=== PATIENT | female | born 2000 | race Caucasian/White ===

== ENCOUNTER 2018-02-27 08:14 | Inpatient (IN) | payer OTHER ==
[2018-02-27] MEDS ORDERED: NS 1,000 ML IV ONE ×3 (08:24→09:21)
[2018-02-27] MEDS ORDERED: ONDANSETRON 4 MG/2 ML VIAL ONE (08:30)
[2018-02-27] MEDS ORDERED: ONDANSETRON 4 MG/2 ML VIAL IVP ONE (08:34)
--- NOTE | 2018-02-27 08:40 | EDPHY ---
H & P Stated Complaint: etoh this weekend vomiting since /is a diabetic Time Seen by Provider: 02/27/18 08:24 HPI/ROS: CHIEF COMPLAINT: Vomiting, diabetic HISTORY OF PRESENT ILLNESS: The patient presents to the ED with intractable vomiting for the past day. The patient reports her symptoms were precipitated by a weekend of heavy drinking. She reportedly has had high blood sugars over the past day the 200 range. She presents to the ED today complaining of profound fatigue, weakness, tachypnea and ongoing vomiting. The patient denies any hematemesis or melena. She denies any antecedent chest pain, cough or congestion. The patient denies any symptoms of dysuria. REVIEW OF SYSTEMS: A comprehensive 10 point review of systems is otherwise negative aside from elements mentioned in the history of present illness. Source: Patient - Personal History LMP (Females 10-55): 15-21 Days Ago - Medical/Surgical History Hx Asthma: No Hx Chronic Respiratory Disease: No Hx Diabetes: Yes Hx Cardiac Disease: No Hx Renal Disease: No Hx Cirrhosis: No Hx Alcoholism: No Hx HIV/AIDS: No Hx Splenectomy or Spleen Trauma: No Other PMH: Type 1 diabetes - Social History Smoking Status: Never smoked - Physical Exam Exam: General Appearance: Thin female, ill-appearing Eyes: Pupils equal and round no pallor or injection ENT, Mouth: Dry mucous membranes Respiratory: Tachypneic Cardiovascular: Tachycardic Gastrointestinal: Diffuse tenderness, no peritoneal signs, normal bowel sounds Neurological: 5/5 strength all 4 extremities Skin: Warm and dry, no rashes Musculoskeletal: Neck is supple nontender Extremities: symmetrical, full range of motion Constitutional: Initial Vital Signs Temperature (C) 36.4 C 02/27/18 08:17 Heart Rate 151 H 02/27/18 08:17 Respiratory Rate 22 H 02/27/18 08:17 Blood Pressure 113/90 H 02/27/18 08:17 O2 Sat (%) 100 02/27/18 08:17 O2 Delivery Mode Room Air Allergies/Adverse Reactions: No Known Allergies Allergy (Unverified 02/27/18 08:17) Home Medications: Medication Instructions Recorded Tresiba Flextouch U-100 02/27/18 novoLOG 02/27/18 Medical Decision Making - Diagnostics EKG Interpretation: EKG: Complete interpretation has been separately recorded in the [facility] archive. Summary impression: Sinus tachycardia, rate 135 ED Course/Re-evaluation: The patient presents to the ED with intractable vomiting in the setting of recent heavy alcohol consumption. She also has a history of diabetes. She presents to the ED acutely ill, tachycardic and dehydrated. The patient is noted to be ketotic clinically. Initial workup includes a venous pH of 6.9 and glucose of greater than 500. The patient had an IV established. She received 2 L of normal saline. She is started on insulin drip per the DKA protocol. Consultation was made with the hospitalist service at 9:00 a.m. and the patient will be admitted to the intensive care unit. The patient is noted to have a fairly significant leukocytosis likely secondary to demargination and stress response. The patient is critically ill and will require admission to the intensive care unit. Differential Diagnosis: Differential diagnosis considered includes diabetic ketoacidosis, dehydration, metabolic abnormality, renal failure Critical Care Time: Critical care time exclusive of procedures and exclusive of the PA's time was 65 minutes, performed by myself, Cheng Jimenez MD. The patient presents to the ED with profound acidosis, dehydration and a endocrine emergency. The patient required resuscitation with IV fluids and the initiation of an insulin drip. She will ultimately require admission to the intensive care unit for stabilization and treatment. - Data Points Laboratory Results: Laboratory Results 02/27/18 08:34 02/27/18 08:34 02/27/18 02/27/18 02/27/18 08:46 08:34 08:34 WBC RBC Hgb POC Hgb 20.1 gm/dL H* gm/dL (12.6-16.3) Hct POC Hct 59 % H % (38-47) MCV MCH MCHC RDW Plt Count MPV Neut % (Auto) Lymph % (Auto) Reagan % (Auto) Eos % (Auto) Baso % (Auto) Nucleat RBC Rel Count Absolute Neuts (auto) Absolute Lymphs (auto) Absolute Monos (auto) Absolute Eos (auto) Absolute Basos (auto) Absolute Nucleated RBC Immature Gran % Immature Gran # Platelet Estimate VBG pH 6.80 L (7.31-7.42) POC Sodium 137 mEq/L mEq/L (135-145) Sodium POC Potassium 4.8 mEq/L mEq/L (3.3-5.0) Potassium POC Chloride 107 mEq/L mEq/L (97-110) Chloride Carbon Dioxide Anion Gap POC BUN 20 mg/dL mg/dL (7-23) BUN Creatinine POC Creatinine 0.9 mg/dL mg/dL (0.6-1.0) Estimated GFR Glucose POC Glucose 595 mg/dL H* mg/dL (70-100) Calcium Total Bilirubin Conjugated Bilirubin Unconjugated Bilirubin AST ALT Alkaline Phosphatase Total Protein Albumin Lipase Beta-Hydroxybutyrate Pending Beta HCG, Qual 02/27/18 02/27/18 02/27/18 08:34 08:34 08:34 WBC 37.50 10^3/uL H 10^3/uL (3.80-9.50) RBC 5.84 10^6/uL H 10^6/uL (4.18-5.33) Hgb 16.6 g/dL H g/dL (12.6-16.3) POC Hgb Hct 55.1 % H % (38.0-47.0) POC Hct MCV 94.3 fL fL (81.5-99.8) MCH 28.4 pg pg (27.9-34.1) MCHC 30.1 g/dL L g/dL (32.4-36.7) RDW 12.9 % % (11.5-15.2) Plt Count 498 10^3/uL H 10^3/uL (150-400) MPV 10.0 fL fL (8.7-11.7) Neut % (Auto) Pending Lymph % (Auto) Pending Reagan % (Auto) Pending Eos % (Auto) Pending Baso % (Auto) Pending Nucleat RBC Rel Count Pending Absolute Neuts (auto) Pending Absolute Lymphs (auto) Pending Absolute Monos (auto) Pending Absolute Eos (auto) Pending Absolute Basos (auto) Pending Absolute Nucleated RBC Pending Immature Gran % Pending Immature Gran # Pending Platelet Estimate Pending VBG pH POC Sodium Sodium 141 mEq/L mEq/L (135-145) POC Potassium Potassium 5.4 mEq/L H mEq/L (3.3-5.0) POC Chloride Chloride 102 mEq/L mEq/L (97-110) Carbon Dioxide Pending Anion Gap Pending POC BUN BUN 15 mg/dL mg/dL (7-23) Creatinine 1.1 mg/dL H mg/dL (0.6-1.0) POC Creatinine Estimated GFR > 60 Glucose Pending POC Glucose Calcium 9.9 mg/dL mg/dL (8.5-10.4) Total Bilirubin 0.4 mg/dL mg/dL (0.1-1.4) Conjugated Bilirubin 0.4 mg/dL mg/dL (0.0-0.5) Unconjugated Bilirubin 0.0 mg/dL mg/dL (0.0-1.1) AST 47 IU/L H IU/L (14-46) ALT 38 IU/L IU/L (9-52) Alkaline Phosphatase 236 IU/L H IU/L (38-126) Total Protein 8.9 g/dL H g/dL (6.3-8.2) Albumin Pending Lipase 198 IU/L IU/L (23-300) Beta-Hydroxybutyrate Beta HCG, Qual NEGATIVE Medications Given: Discontinued Medications Sodium Chloride (Ns) 1,000 mls @ 0 mls/hr IV EDNOW ONE; Wide Open PRN Reason: Protocol Stop: 02/27/18 08:25 Last Admin: 02/27/18 08:35 Dose: 1,000 mls Sodium Chloride (Ns) 1,000 mls @ 0 mls/hr IV EDNOW ONE; Wide Open PRN Reason: Protocol Stop: 02/27/18 08:25 Last Admin: 02/27/18 08:35 Dose: 1,000 mls Ondansetron HCl (Zofran) 4 mg IVP EDNOW ONE Stop: 02/27/18 08:35 Last Admin: 02/27/18 08:35 Dose: 4 mg Point of Care Test Results: Chemistry 02/27/18 08:46 POC Sodium 137 mEq/L mEq/L (135-145) POC Potassium 4.8 mEq/L mEq/L (3.3-5.0) POC Chloride 107 mEq/L mEq/L (97-110) POC BUN 20 mg/dL mg/dL (7-23) POC Creatinine 0.9 mg/dL mg/dL (0.6-1.0) POC Glucose 595 mg/dL H* mg/dL (70-100) ISTAT H&H 02/27/18 08:46 POC Hgb 20.1 gm/dL H* gm/dL (12.6-16.3) POC Hct 59 % H % (38-47) Departure - Departure Disposition: [facility] Clinical Impression: Diabetic ketoacidosis, Tachycardia Condition: Critical
--- NOTE | 2018-02-27 08:42 | CPEKG ---
Test Reason : OPEN Blood Pressure : / mmHG Vent. Rate : 135 BPM Atrial Rate : 135 BPM P-R Int : 129 ms QRS Dur : 078 ms QT Int : 321 ms P-R-T Axes : 092 082 057 degrees QTc Int : 482 ms Sinus tachycardia Confirmed by Cheng Jimenez ([id number]) on 02/27/2018 8:42:10 AM Referred By: Confirmed By:Cheng Jimeenz
[2018-02-27] MEDS ORDERED: INSULIN REGULAR HUMAN 100 UNIT, COSIGN. REQUIRED 1 EA in NS 100 ML IV ONE (08:55)
[2018-02-27 08:56] LABS: PLATELET COUNT 498 10^3/uL (150-400)
[2018-02-27] MEDS ORDERED: SODIUM BICARBONATE 50 MEQ/50 ML SYR IVP ONE (09:22)
[2018-02-27] MEDS ORDERED: ONDANSETRON DISINTEGRATING 4 MG TAB PO PRN (09:24)
[2018-02-27] MEDS ORDERED: ONDANSETRON 4 MG/2 ML VIAL IVP PRN (09:24)
[2018-02-27] MEDS ORDERED: INSULIN REGULAR HUMAN 100 UNIT in NS 100 ML IV SCH ×2 (09:30→11:00)
--- NOTE | 2018-02-27 10:57 | PDGENHP ---
History and Physical - Chief Complaint N/V - History of Present Illness 17 yo female with h/o type 1 DM, diagnosed age 5, presents to ED with N/V and volume depletion, found to be in DKA. She went to a [employer] Monday night and drank a lot of alcohol. 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 She began vomiting last night and has had ongoing N/V through the night. She denies fevers/chills, cough, CP, SOB or abdominal pain. She does endorse dysuria and notes h/o UTI. She says her a1c is usually around 9. She is generally compliant with her basal/bolus insulin regimen and has never been hospitalized with DKA in the past. On arrival to the ED, she was tachycardic to 150 and tachypneic. Venous pH was 6.8 and bg was in the 500's. She received 2 L NS bolus, was started on an insulin drip, and is admitted to the ICU for further management. History Information - Allergies/Home Medication List Allergies/Adverse Reactions: No Known Allergies Allergy (Verified 02/27/18 09:25) Home Medications: Insulin Aspart [novoLOG] 0 unit SC TIDMEAL 02/27/18 [Last Taken Unknown] Insulin Degludec [Tresiba Flextouch U-100] 30 unit SQ HS 02/27/18 [Last Taken ] I have personally reviewed and updated: family history, medical history, social history, surgical history - Past Medical History diabetes type 1 - Surgical History Reports: no pertinent surgical hx - Family History Positive for: non-pertinent - Social History Smoking Status: Never smoked Alcohol Use: Other (binge drinking at times) Drug Use: None 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, from [place], father at bedside Review of Systems Review of Systems: Physical Exam Physical Exam: Temp Pulse Resp BP Pulse Ox 36.5 C 130 H 42 H 138/76 H 100 02/27/18 10:42 02/27/18 10:42 02/27/18 10:42 02/27/18 10:42 02/27/18 10:42 Lab Data & Imaging Review 02/27/18 08:34 02/27/18 08:34 WBC 37.50 10^3/uL (3.80-9.50) H 02/27/18 08:34 RBC 5.84 10^6/uL (4.18-5.33) H 02/27/18 08:34 Hgb 16.6 g/dL (12.6-16.3) H 02/27/18 08:34 POC Hgb 16.0 gm/dL (12.6-16.3) 02/27/18 10:19 Hct 55.1 % (38.0-47.0) H 02/27/18 08:34 POC Hct 47 % (38-47) 02/27/18 10:19 MCV 94.3 fL (81.5-99.8) 02/27/18 08:34 MCH 28.4 pg (27.9-34.1) 02/27/18 08:34 MCHC 30.1 g/dL (32.4-36.7) L 02/27/18 08:34 RDW 12.9 % (11.5-15.2) 02/27/18 08:34 Plt Count 498 10^3/uL (150-400) H 02/27/18 08:34 MPV 10.0 fL (8.7-11.7) 02/27/18 08:34 Neut % (Auto) 79.3 % (39.3-74.2) H 02/27/18 08:34 Lymph % (Auto) 11.7 % (15.0-45.0) L 02/27/18 08:34 [place] % (Auto) 5.9 % (4.5-13.0) 02/27/18 08:34 Eos % (Auto) 0.0 % (0.6-7.6) L 02/27/18 08:34 Baso % (Auto) 0.8 % (0.3-1.7) 02/27/18 08:34 Nucleat RBC Rel Count 0.0 % (0.0-0.2) 02/27/18 08:34 Absolute Neuts (auto) 29.72 10^3/uL (1.70-6.50) H 02/27/18 08:34 Absolute Lymphs (auto) 4.39 10^3/uL (1.00-3.00) H 02/27/18 08:34 Absolute Monos (auto) 2.22 10^3/uL (0.30-0.80) H 02/27/18 08:34 Absolute Eos (auto) 0.01 10^3/uL (0.03-0.40) L 02/27/18 08:34 Absolute Basos (auto) 0.29 10^3/uL (0.02-0.10) H 02/27/18 08:34 Absolute Nucleated RBC 0.00 10^3/uL (0-0.01) 02/27/18 08:34 Immature Gran % 2.3 % (0.0-1.1) H 02/27/18 08:34 Seg Neutrophils % 87.4 % 02/27/18 08:34 Band Neutrophils % 0.0 % 02/27/18 08:34 Lymphocytes % 7.4 % 02/27/18 08:34 Monocytes % 5.2 % 02/27/18 08:34 Eosinophils % 0.0 % 02/27/18 08:34 Basophils % 0.0 % 02/27/18 08:34 Metamyelocytes % 0.0 % 02/27/18 08:34 Myelocytes % 0.0 % 02/27/18 08:34 Promyelocytes % 0.0 % 02/27/18 08:34 Blast Cells % 0.0 % 02/27/18 08:34 Immature Gran # 0.87 10^3/uL (0.00-0.10) H 02/27/18 08:34 Absolute Seg Neuts 32.78 10^3/uL (1.70-6.50) H 02/27/18 08:34 Absolute Band Neuts 0.00 10^3/uL (0.00-0.70) 02/27/18 08:34 Absolute Lymphocytes 2.78 10^3/uL (1.00-3.00) 02/27/18 08:34 Absolute Monocytes 1.95 10^3/uL (0.30-0.80) H 02/27/18 08:34 Absolute Eosinophils 0.00 10^3/uL (0.03-0.40) L 02/27/18 08:34 Absolute Basophils 0.00 10^3/uL (0.02-0.10) L 02/27/18 08:34 Absolute Metamyelocyte 0.00 10^3/mL (0.00-0.00) 02/27/18 08:34 Absolute Myelocytes 0.00 10^3/mL (0.00-0.00) 02/27/18 08:34 Absolute Promyelocytes 0.00 10^3/uL (0.00-0.00) 02/27/18 08:34 Absolute Plasma Cells 0.00 10^3/uL (0.00-0.00) 02/27/18 08:34 Nucleated RBCs 0 /100 WBC (0-0) 02/27/18 08:34 Absolute Blast Cells 0.00 10^3/uL (0.00-0.00) 02/27/18 08:34 Plasma Cells % 0.0 % 02/27/18 08:34 Platelet Estimate ADEQUATE (ADEQ) 02/27/18 08:34 Polychromasia 1+ H 02/27/18 08:34 Puncture Site LEFT RADIAL 02/27/18 10:17 Patient Temperature 36.2 DEGREES 02/27/18 10:17 pCO2 9 mmHg (34-38) L* 02/27/18 10:17 pO2 110 mmHg (65-75) H 02/27/18 10:17 Total CO2 3 mEq/L (23-27) L* 02/27/18 10:17 ABG pH 6.99 (7.35-7.45) L* 02/27/18 10:17 ABG HCO3 2 mEq/L (22-26) L 02/27/18 10:17 ABG O2 Saturation 97 % (92-95) H 02/27/18 10:17 ABG Base Excess -30.6 mEq/L (-2.5-2.5) L 02/27/18 10:17 VBG pH 6.92 (7.31-7.42) L 02/27/18 10:15 VBG HCO3 4 mEQ/L (22-26) L 02/27/18 10:15 VBG Total CO2 4 mEq/L (21-27) L 02/27/18 10:15 VBG O2 Saturation 95 % (65-75) H 02/27/18 10:15 VBG Base Excess -29.8 mEq/L (-2.5-2.5) L 02/27/18 10:15 Mixed VBG pCO2 19 mmHg (40-44) L 02/27/18 10:15 Mixed VBG pO2 103 mmHG (35-40) H 02/27/18 10:15 Total O2 Concentration Cancelled 02/27/18 10:11 O2 Concentration % ROOM AIR % (0-100) 02/27/18 10:17 Respiration Rate Cancelled 02/27/18 10:11 Actual Respiration Rate Cancelled 02/27/18 10:11 Set Respiration Rate Cancelled 02/27/18 10:11 SIMV Cancelled 02/27/18 10:11 Assist Control Cancelled 02/27/18 10:11 Vent Rate Cancelled 02/27/18 10:11 Expiratory Pressure Cancelled 02/27/18 10:11 Tidal Volume Cancelled 02/27/18 10:11 End Tidal CO2 Cancelled 02/27/18 10:11 PEEP Cancelled 02/27/18 10:11 Inspiratory Pressure Cancelled 02/27/18 10:11 Pressure Support Cancelled 02/27/18 10:11 Pressure Control Cancelled 02/27/18 10:11 CPAP Cancelled 02/27/18 10:11 BiPAP Cancelled 02/27/18 10:11 Mode BiPAP Cancelled 02/27/18 10:11 Inspir/Expir Ratio Cancelled 02/27/18 10:11 POC Sodium 140 mEq/L (135-145) 02/27/18 10:19 Sodium 141 mEq/L (135-145) 02/27/18 08:34 POC Potassium 5.0 mEq/L (3.3-5.0) 02/27/18 10:19 Potassium 5.4 mEq/L (3.3-5.0) H 02/27/18 08:34 POC Chloride 114 mEq/L (97-110) H 02/27/18 10:19 Chloride 102 mEq/L (97-110) 02/27/18 08:34 Carbon Dioxide < 5 mEq/l (22-31) L* 02/27/18 08:34 Anion Gap TNP 02/27/18 08:34 POC BUN 19 mg/dL (7-23) 02/27/18 10:19 BUN 15 mg/dL (7-23) 02/27/18 08:34 Creatinine 1.1 mg/dL (0.6-1.0) H 02/27/18 08:34 POC Creatinine 0.5 mg/dL (0.6-1.0) L 02/27/18 10:19 Estimated GFR > 60 02/27/18 08:34 Glucose 590 mg/dL (70-100) H* 02/27/18 08:34 POC Glucose 483 mg/dL (70-100) H 02/27/18 10:19 Hemoglobin A1c 12.2 % (4.0-6.0) H 02/27/18 08:34 Estim Average Glucose 303 mg/dL (68-126) H 02/27/18 08:34 Calcium 9.9 mg/dL (8.5-10.4) 02/27/18 08:34 Total Bilirubin 0.4 mg/dL (0.1-1.4) 02/27/18 08:34 Conjugated Bilirubin 0.4 mg/dL (0.0-0.5) 02/27/18 08:34 Unconjugated Bilirubin 0.0 mg/dL (0.0-1.1) 02/27/18 08:34 AST 47 IU/L (14-46) H 02/27/18 08:34 ALT 38 IU/L (9-52) 02/27/18 08:34 Alkaline Phosphatase 236 IU/L (38-126) H 02/27/18 08:34 Total Protein 8.9 g/dL (6.3-8.2) H 02/27/18 08:34 Albumin 5.7 g/dL (3.5-5.0) H 02/27/18 08:34 Lipase 198 IU/L (23-300) 02/27/18 08:34 Beta-Hydroxybutyrate 10.20 mmol/L (0.02-0.27) H 02/27/18 08:34 Beta HCG, Qual NEGATIVE 02/27/18 08:34 Assessment & Plan Assessment: Type 1 DM with DKA - admit to ICU for IVF's, insulin drip, serial labs, hourly VBG. Will give 1 amp sodium bicarb with pH 6.8 and elevated K. Metabolic acidosis - 2/2 above, pH on the rise, recent abg with pH 6.99. Cont fluids, insulin. Leukocytosis - ?stress response, also possible uti with reported symptoms. Send UA / Cx if indicated. Trend. N/V - suspect related to recent binge drinking. Start PPI, prn anti-emetics, IVF's Hyperkalemia - expect resolution s/p NaHCO3 and insulin, follow Full code DVT PPLX - low risk, SCD's Dispo - admit to inpt / ICU for ongoing management of DKA and profound metabolic acidosis. 30 min crit care time
[2018-02-27] MEDS ORDERED: NS 500 ML IV ONE (11:00)
[2018-02-27] MEDS ORDERED: D50W 25 GM/50 ML SYR IVP PRN (11:00)
[2018-02-27] MEDS: NS 1,000 ML IV SCH ×4 (12:00→21:11)
[2018-02-27] MEDS: PANTOPRAZOLE SODIUM 40 MG VIAL IVP SCH (12:13)
[2018-02-27] MEDS ORDERED: PROTOCOL POTASSIUM 1 DOSE MISC PRN (12:33)
--- NOTE | 2018-02-27 13:10 | PDMN ---
Medical Necessity Medical necessity: [facility] [place] M130 diabetes: A-1 day : INPT from time of admit for DKA - N/V, dysuria, tachycardia, tachypneic, hyperglycemia glucose 595, ana pH 6.8, pCO2 9, hyperkalemia 5.4, further monitoring, aval and tx needed,
[2018-02-27] MEDS: D10W 1,000 ML IV SCH ×2 (13:28→22:29)
--- NOTE | 2018-02-27 15:47 | ASMTCMCOM ---
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 She has a Hx of DM-1. She lives in [place] with her mother. May not have discharge needs. Date Signed: 02/27/2018 03:47 PM Electronically Signed By:Shelia Orona LCSW
--- NOTE | 2018-02-27 16:54 | GCON ---
PULMONARY/CRITICAL CARE CONSULTATION. DATE OF CONSULTATION: 02/27/2018 REFERRING PHYSICIAN: Jolly York MD REASON FOR REFERRAL: Evaluation and management of diabetic ketoacidosis with severe metabolic acidos is and hyperglycemia history. The patient is a 17-year-old woman with a history of type 1 diabetes since age 5. She uses Tresiba 3 0 units once daily. She is followed by an gis administrator in [place], although has not seen them s april. She reports that her glucose control has been "less than ideal" for quite a while, wit h blood sugars typically running in the 200s. She has had no prior history of DKA. She went to some parties over this past week and missed a basal insulin dose on Monday night. She started vomiting o vernight and had ongoing nausea and vomiting throughout the night. She denies fevers or chills, but does have dysuria and has had urinary tract infections in the past. In the emergency department, she was found to be tachycardic and tachypneic. She has severe acidosis with a pH of 6.8. She received 2 L of fluid and received some bicarb as well as being started on an insulin drip. She reports that she is feeling better, with increased energy. She is feeling quite thirsty. She denies pain curren tly. PAST MEDICAL HISTORY: Type 1 diabetes. MEDICATIONS: Tresiba 30 units in the evening, last taken on 02/25/2018, NovoLog insulin subcu 3 time s daily p.r.n. ALLERGIES: None. 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 Her parents are here at the bedside. She has some binge drinking. She has never smoked. FAMILY HISTORY: Unremarkable. REVIEW OF SYSTEMS: A 10-point review of systems adds nothing to the history of present illness. PHYSICAL EXAMINATION: GENERAL: The patient is somnolent, but arousable and is awake and alert when awakened. VITAL SIGNS: Blood pressure is 115/47 with a heart rate of 143. She is afebrile. Oxygen saturations are 100% on room air. HEENT: Normocephalic and atraumatic. No icterus. NECK: No JVD . Trachea is midline. CHEST: Clear to auscultation. CARDIAC: Regular, tachycardia without murmur . ABDOMEN: Soft, nontender. Bowel sounds are present. EXTREMITIES: No clubbing, cyanosis, or sonu ma. LABORATORY: Glucose is 188, down from 590. Creatinine 0.7, anion gap is 17 and was unmeasurable at admission. A beta hydroxybutyrate is 7.9, down from 9.7, hemoglobin 16.0, stable from 16.6 at admiss ion. A venous blood gas shows a pH of 7.07, up from 6.80 at admission. Her bicarbonate is 3, stable from admission. A urinalysis shows 3+ glucose and 1-3 white blood cells. Hemoglobin A1c is 12.2. ASSESSMENT: 1. Diabetic ketoacidosis. The patient has type 1 diabetes, which has been poorly controlled over e last several months and probably the past year or so, with a hemoglobin A1c suggesting a mean gluco se of over 300. The patient's DKA was prompted by excessive alcohol intake as well as skipping her b deidre insulin. 2. Metabolic acidosis. The patient has severe metabolic acidosis on the basis of diabetic ketoacido sis as well as possibly some starvation ketosis. Her pH has improved a bit, but she continues to hav e a severely low bicarbonate level and anion gap. I expect that these will close with insulin and fl uids. RECOMMENDATIONS: 1. Continue with DKA protocol. Recommend continuing IV fluids at 500 cc an hour. I think the patie nt can eat and this will help augment her fluid and caloric intake; allow us to continue with insulin at a fairly high rate, in conjunction with IV and p.o. fluids which should help close her anion gap, and correct her acidosis. 2. I had a discussion with the patient in the presence of her parents, informing her of her very hig h hemoglobin A1c and likely poor diabetic control in the recent past. She understands the potential long-term sequela from poorly treated diabetes. I anticipate that she will be transitioned to her [facility] insulin regimen, and can probably be discharged in the next 1-2 days. She can then make follow up with her gis administrator to try to improve her diabetic control. /[id number]/MODL
[2018-02-27] MEDS: POTASSIUM Cl (KCl) 100 ML IV SCH ×2 (20:06→21:11)
[2018-02-27] MEDS: ACETAMINOPHEN 325 MG TAB PO PRN (22:26)
[2018-02-28] MEDS: NS 1,000 ML IV SCH ×3 (01:01→08:34)
[2018-02-28] MEDS: POTASSIUM Cl (KCl) 100 ML IV SCH ×3 (01:17→03:31)
[2018-02-28] MEDS: D10W 1,000 ML IV SCH ×2 (04:24→08:33)
[2018-02-28 06:35] LABS: PLATELET COUNT 224 10^3/uL (150-400)
[2018-02-28] MEDS: PANTOPRAZOLE SODIUM 40 MG VIAL IVP SCH (07:26)
[2018-02-28] MEDS: POTASSIUM Cl (KCl) 50 ML IV SCH ×3 (07:26→08:35)
[2018-02-28] MEDS ORDERED: D50W 25 GM/50 ML SYR IVP PRN (10:57)
--- NOTE | 2018-02-28 10:57 | PDINTPN ---
Refuse Collector Supervisor Progress Note Assessment/Plan: Assessment: DKA: Resolved with IV insulin gtt, with normalized serum glucose,anion gap, and b-HB. HCO3 still low but climbing slowly. Hasn't had much PO yet Plan: Increase PO intake. Change to SQ insulin, homegoing regimen. OK to transfer to floor later today if BSs OK and taking PO. 02/28/18 10:59 Subjective: Slept well last night. Appetite better. Denies pain. Objective: Vital Signs Temp Pulse Resp BP Pulse Ox 37.0 C 114 H 22 H 105/54 L 97 02/28/18 04:00 02/28/18 10:00 02/28/18 10:00 02/28/18 10:00 02/28/18 10:00 Laboratory Results 02/28/18 06:05 02/28/18 06:05 02/27/18 02/28/18 03/01/18 05:59 05:59 05:59 Intake Total 08200.9 Output Total 3130 800 Balance 8870.9 -800 Physical Exam - Physical Exam General Appearance: alert EENT: normal ENT inspection Neck: full range of motion, normal inspection Respiratory: lungs clear, respiratory distress Cardiac/Chest: regular rate, rhythm, edema Abdomen: normal bowel sounds, non-tender Skin: normal color, warm/dry Extremities: normal inspection Neuro/Psych: alert, normal mood/affect, oriented x 3 ICD10 Worksheet Patient Problems: Problems Problem Status Onset Diabetic ketoacidosis Acute Tachycardia Acute
[2018-02-28] MEDS ORDERED: INSULIN GLARGINE 100 UNITS/ML UNIT SC SCH (11:00)
[2018-02-28] MEDS ORDERED: POTASSIUM Cl (KCl) 20 MEQ in 1/2 NS 1,000 ML IV SCH (11:30)
[2018-02-28] MEDS: INSULIN LISPRO 100 UNIT/ML SC SCH ×3 (12:09→21:20)
--- NOTE | 2018-02-28 13:20 | HOSPPROG ---
Hospitalist Progress Note Assessment/Plan: Type 1 DM with DKA - gap closed, still mildly acidemic. a1c 12.2 -transition to SC insulin with increased lantus and humalog doses -q6h bmp to ensure gap not opening with transition to sc insulin (resume insulin drip if gap opens) -discussed lifestyle changes, referral to local dye feeder outpt Metabolic acidosis - 2/2 above, improving -cont ivf's -q6h bmp Leukocytosis - suspect stress response to dka, no e/o infection, wbc's trending down -cont to follow N/V - suspect related to recent binge drinking. -cont ppi for now, change to po Hyperkalemia - resolved with insulin, ivf's Full code DVT PPLX - low risk, SCD's Dispo - cont inpt, transfer to med/surg Subjective: Pt feels better. Less fatigued. No fevers/chills. Eating well. No more N/V. Objective: Vital Signs Temp Pulse Resp BP Pulse Ox 37.0 C 114 H 22 H 105/54 L 97 02/28/18 04:00 02/28/18 10:00 02/28/18 10:00 02/28/18 10:00 02/28/18 10:00 Laboratory Results 02/28/18 06:05 02/28/18 12:04 02/27/18 02/28/18 03/01/18 05:59 05:59 05:59 Intake Total 27389.9 2914.65 Output Total 3130 800 Balance 8870.9 2114.65 - Physical Exam Constitutional: no apparent distress Eyes: PERRL Ears, Nose, Mouth, Throat: moist mucous membranes Cardiovascular: regular rate and rhythym Respiratory: no respiratory distress, clear to auscultation Gastrointestinal: normoactive bowel sounds, soft, non-tender abdomen Skin: warm Musculoskeletal: full muscle strength Neurologic: AAOx3 Psychiatric: interacting appropriately ICD10 Worksheet Patient Problems: Problems Problem Status Onset Diabetic ketoacidosis Acute Tachycardia Acute
[2018-02-28] MEDS: ACETAMINOPHEN 325 MG TAB PO PRN (14:54)
--- NOTE | 2018-02-28 16:26 | ASMTCMCOM ---
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 She has a Hx of DM-1 since age 5. She lives in [place] with her mother. CM contacted [facility] at and gathered info on integrative, nutrition and psychological support they have and provided print outs for pt. RN at [facility] also mentioned student case management and said she would call back to offer more information. Pt stated that the problem "comes down to me." Pt encouraged to avoid self blame but to seek support in making better choices. D/C Plan: Home independently. Date Signed: 02/28/2018 04:25 PM Electronically Signed By:Aarti Barba
[2018-02-28] MEDS ORDERED: PROTOCOL POTASSIUM 1 DOSE MISC PRN (21:58)
[2018-02-28] MEDS ORDERED: POTASSIUM CL 10 MEQ TAB PO ONE (22:00)
[2018-03-01 07:38] VITALS: BP 118/59
[2018-03-01] MEDS: INSULIN LISPRO 100 UNIT/ML SC SCH ×2 (08:05→13:10)
[2018-03-01] MEDS ORDERED: INSULIN GLARGINE 100 UNITS/ML UNIT SC SCH (09:00)
[2018-03-01] MEDS ORDERED: PANTOPRAZOLE SODIUM 40 MG TAB PO SCH (09:00)
[2018-03-01] MEDS ORDERED: POTASSIUM CL 20 MEQ TAB PO ONE (11:37)
--- NOTE | 2018-03-01 14:25 | ASDISCHSUM ---
Discharge Information Plan Status:Home with No Needs Medically Cleared to Leave:02/28/2018 Discharge Date:02/28/2018 CM D/C Disposition:Home, Routine, Self-Care ADT D/C Disposition:Home, Routine, Self-Care Projected Discharge Date:03/01/2018 12:00 AM Transportation at D/C:Family Discharge Delay Reason: Follow-Up Date:03/01/2018 12:00 AM Discharge Slot: Final Diagnosis:N/V, DKA, Tachy Placement Information Patient Contact Information Contact Name:AALIYAH Relationship:Mother Address:[address] Work Phone: Martha:JAYCEE Pittman Phone: State/Zip Code:[place] [address] Email: Financial Information Financial Class:HMO and PPO Plans Primary Plan Desc:SUSAN KAYE Primary Plan Number:[id number] Secondary Plan Desc: Secondary Plan Number: Assessment Information [facility] Progress Note CM Note KEYLA Note Notes: 17yo female student admitted for DKA, Tachy, N/V after a few nights drinking ETOH at [employer] parties. She has a Hx of DM-1. She lives in [place] with her mother. May not have discharge needs. Date Signed: 02/27/2018 03:47 PM Electronically Signed By:Shelia Orona LCSW [facility] Progress Note CM Note KEYLA Note Notes: 17yo female student admitted for DKA, Tachy, N/V after a few nights drinking ETOH at [employer] parties. She has a Hx of DM-1 since age 5. She lives in [place] with her mother. CM contacted [facility] at and gathered info on integrative, nutrition and psychological support they have and provided print outs for pt. RN at [facility] also mentioned student case management and said she would call back to offer more information. Pt stated that the problem "comes down to me." Pt encouraged to avoid self blame but to seek support in making better choices. D/C Plan: Home independently. Date Signed: 02/28/2018 04:25 PM Electronically Signed By:Aarti Barba Case Management Discharge Plan Note Case Management Discharge Discharge Order Complete? Answers: Yes Patient to Obtain Answers: via Family Medications Transportation Arranged Answers: Family/Friends Family Notified Answers: Yes Notes: in the room Discharge Comments Notes: Pt is discharging home with parents. Pt given contact number for student support case management at [facility] and various other resources available. With pt's permission, CM contacted [facility] and provided them with pt's contact information. No further CM needs noted at this time. Date Signed: 03/01/2018 02:23 PM Electronically Signed By:Aarti Barba Intervention Information
--- NOTE | 2018-03-01 14:25 | ASMTLACE ---
LACE Length of stay for Answers: 2 days current admission Acuity / Level of Answers: Yes Care: Did the patient have an inpatient admission? Comorbidities - select Answers: Diabetes (uncontrolled or all that apply controlled) # of Emergency department Answers: 1-2 visits in the last 6 months Score: 7 Date Signed: 03/01/2018 02:25 PM Electronically Signed By:Felisa Williamson RN
--- NOTE | 2018-03-01 15:15 | GDS ---
DISCHARGE DIAGNOSES: 1. Type 1 diabetes with diabetic ketoacidosis. 2. Metabolic acidosis. 3. Leukocytosis. 4. Nausea, vomiting. 5. Hyperkalemia. 6. Tachycardia. HISTORY OF PRESENT ILLNESS: A 17-year-old female with type 1 diabetes diagnosed age 5, presented the ED with nausea, vomiting, volume depletion. She went to a [employer] night and drank a lot of alcohol. She drank again on Monday and missed her . basal insulin. She began vomiting the day prior and this had been persistent. Denies any fevers, chills, sweats, cough, chest pain or shelly rtness of breath. HOSPITAL COURSE: 1. Type 1 diabetes with DKA: Previously had a pump, but did not like that. She was missed a couple of insulin doses while going to parties. She was monitored in the ICU on an insulin drip, gap close d. A1c is 12.2. She is advised to follow up with her pricing coordinator for better control at home. 2. Anion gap metabolic acidosis: Secondary to DKA. This resolved. 3. Leukocytosis: Stress inflammation given DKA. No evidence of infection. 4. Nausea, vomiting related to binge drinking and DKA: This is resolved. She is taking in p.o. 5. Hyperkalemia: Resolved with fluids and insulin. 6. Tachycardia: Tachy to 150s in the emergency room. This was due to severe dehydration. This imp roved. At time of discharge, advised to drink plenty of fluids. DISPOSITION: Patient is stable for discharge home with her mother. FOLLOWUP: Endocrinology. PHYSICAL EXAMINATION: VITAL SIGNS: Temperature 36.8 blood pressure 118/59, heart rate in the 100s t o 110s, respirations 18, 97% on room air. GENERAL: She is well appearing, smiling, in no acute dist ress. HEENT: PERRLA. Moist mucous membranes. CV: Mildly tachy, but regular. No murmurs, gallops , or rubs. LUNGS: Clear. ABDOMEN: Soft, nontender, nondistended. Positive bowel sounds. : No Camilo. MUSCULOSKELETAL: 5/5 upper lower extremities. NEURO: 2 through 12 intact. PSYCH: Alert and orient x3. Time spent on discharge, greater than 30 minutes at bedside with patient, mother counseling on med me dication compliance and followup. /[id number]/MODL
== END 2018-03-01 14:30 | disposition home or self-care (01) | DRG 639 ==
LOC: F2N 10:23 → F1N 02-28 15:47
PROVIDERS: ADMIT Hospitalist; ATTEND Hospitalist
DX: E10.10 Type 1 diabetes mellitus with ketoacidosis without coma (principal); E87.5 Hyperkalemia; R00.0 Tachycardia, unspecified; T38.3X6A Underdosing of insulin and oral hypoglycemic [antidiabetic] drugs, initial encounter; F10.10 Alcohol abuse, uncomplicated; E86.9 Volume depletion, unspecified
CPT/HCPCS: 82435-PO; 82565-PO; 82947-PO; 83605-PO; 84132-PO; 84295-PO; 84520-PO; 85014-PO; 96374; J1815; J2405; J3480